=== PATIENT | female | born 1950 | race Caucasian/White ===

== ENCOUNTER 2017-08-27 08:49 | Inpatient (IN) | payer OTHER ==
[~2017-08-27] VITALS: Ht 170.2 cm; Wt 74.1 kg
[2017-08-27 08:54] VITALS: Ht 170.2 cm; Wt 74.1 kg
[2017-08-27 10:03] LABS: BASOPHIL % 0.3 % (0-2); PLATELET COUNT 195 x10^3mcL (130-400); RED CELL DISTRIBUTION WIDTH 13.1 % (11.5-14.5)
[2017-08-27 10:15] LABS: CALCIUM 8.4 mg/dL (8.5-10.1); CARBON DIOXIDE 28.3 mmol/L (21-32); CHLORIDE SERUM 106 mmol/L (98-107); CREATININE SERUM 0.7 mg/dL (0.6-1.0); GFR1 > 60 mL/min; GLUCOSE SERUM 126 mg/dL (74-106); POTASSIUM SERUM 4.2 mmol/L (3.5-5.1); SODIUM SERUM 143 mmol/L (136-145)
[2017-08-27 10:19] LABS: ALBUMIN 3.8 g/dL (3.4-5.0); ALKALINE PHOSPHATASE 112 U/L (46-116); ALT/SGPT 25 U/L (14-59); AST/SGOT 15 U/L (15-37); BILIRUBIN TOTAL 0.3 mg/dL (0.20-1.00); CHOLESTEROL 189 mg/dL (<200); TOTAL PROTEIN, SERUM 7.5 g/dL (6.4-8.2)
[2017-08-27] MEDS ORDERED: BENAZEPRIL HYDR40 M1 PO (11:22)
[2017-08-27 12:42] VITALS: BP 162/74
[2017-08-27 13:39] LABS: CHOLESTEROL/HDL RATIO 4.8; MAGNESIUM 1.8 mg/dL (1.8-2.4); PHOSPHOROUS 2.8 mg/dL (2.5-4.9)
[2017-08-27 13:55] LABS: UA SPECIFIC GRAVITY 1.015 (1.005-1.035); microscopic required? YES; urine erythrocyte 1+ (NEGATIVE)
[2017-08-27 14:03] LABS: AMPHETAMINE QUAL UR NONE DETECTED (NEG <=1000)
[2017-08-27 18:23] VITALS: BP 167/76
[2017-08-27 20:49] VITALS: BP 155/67
[2017-08-28] VITALS (7 sets, daily range): BP systolic 132–166; BP diastolic 61–78
[2017-08-28] MEDS ORDERED: TOP50 PO (13:06)
[2017-08-28] MEDS ORDERED: MECLIZINE HCL12.5 MG PO (13:07)
== END 2017-08-28 15:19 | disposition home or self-care (01) | DRG 149 ==
LOC: ED 08:49 → DU 11:18
PROVIDERS: Family Medicine Sports Medicine; Specialist
DX: H81.10 Benign paroxysmal vertigo, unspecified ear (principal); I16.0 Hypertensive urgency; E83.51 Hypocalcemia; E78.2 Mixed hyperlipidemia; R31.9 Hematuria, unspecified; Z68.25 Body mass index [BMI] 25.0-25.9, adult
CPT/HCPCS: 83880; J0780; J7030; J7040; J8597; Q0092